=== PATIENT | female | born 1970 | race Caucasian/White ===

== ENCOUNTER → 2017-05-16 | Outpatient (CLI) | payer MEDICAID ==
[~2017-05-16] MED LIST: CLOP75TA16
== END | disposition home or self-care (01) ==
LOC: US 07:22
DX: N64.4 Mastodynia (principal)
CPT/HCPCS: 76642

== ENCOUNTER → 2018-09-28 | Outpatient (CLI) | payer MEDICAID ==
[~2018-09-28] MED LIST changes: -CLOP75TA16; +CLOP75TA4
== END | disposition home or self-care (01) ==
LOC: US 07:47
PROVIDERS: ATTEND Internal Medicine Endocrinology, Diabetes & Metabolism
DX: E04.2 Nontoxic multinodular goiter (principal)
CPT/HCPCS: 76536